=== PATIENT | female | born 1950 | race Two or more races ===

== ENCOUNTER 2025-11-22 17:00 | Emergency (ER) | payer OTHER, MEDICARE ==
[~2025-11-22] VITALS: Ht 167.6 cm; Wt 61.0 kg
[2025-11-22 17:02] VITALS: O2SAT 98
[2025-11-22] MEDS: BACITRACIN ZINC OINT UDPKT TOP ONE (18:53)
[2025-11-22] MEDS: TETANUS, DIPHTHERIA, PERTUSSIS VAC/PF 0.5ML (>10YR OLD) IM ONE (18:53)
[2025-11-22] MEDS ORDERED: LIDOCAINE 5% PATCH TOP SCH (19:00)
[2025-11-22] MEDS ORDERED: ACET-2708 MT (21:00)
[2025-11-22] MEDS ORDERED: LIDO-53 TP (21:00)
[2025-11-22] MEDS ORDERED: AMOX1TAB16 MT (21:00)
[2025-11-22 21:51] VITALS: BP 167/72; PULSE 77; RESP 18; TEMP 36.6; O2SAT 99
== END 2025-11-22 21:55 | disposition home or self-care (01) ==
LOC: ER 17:00
DX: S00.81XA Abrasion of other part of head, initial encounter (principal); I10 Essential (primary) hypertension; R51.9 Headache, unspecified; W54.0XXA Bitten by dog, initial encounter; Y93.89 Activity, other specified; Y92.89 Other specified places as the place of occurrence of the external cause; Y99.8 Other external cause status
CPT/HCPCS: 72131; 73110; 90471; 90715; 99285